=== PATIENT | male | born 1990 | race American Indian/Alaskan Native ===

== ENCOUNTER 2017-05-14 18:45 | Emergency (ER) | payer SELFPAY ==
[2017-05-14 18:52] VITALS: BP 120/77
[2017-05-14] MEDS ORDERED: BICILLIN L-A IM ONE (20:58)
[2017-05-14] MEDS ORDERED: TORADOL IM ONE (20:59)
--- NOTE | 2017-05-14 21:03 | Emergency Department Report ---
ED ENT HPI - General Chief complaint: Sore Throat Stated complaint: COLD Time Seen by Provider: 05/14/17 20:57 Source: patient Mode of arrival: Ambulatory Limitations: No Limitations - History of Present Illness Initial comments: 26 YO MALE DX WITH STREP THROAT LST WEEK AND TREATED BUT C/O COUGH FOR 2-3 WEEKS. HE FEELS THE STREP THROAT COMING ON AGAIN. PT HAS BEEN KISSING ON HIS GIRLFRIEND WHO WAS NOT TREATED MD complaint: sore throat -: week(s) (1) Location: throat Severity: moderate - Related Data Previous Rx's Medication Instructions Recorded Last Taken Type Diclofenac Dr [Voltaren Dr] 75 mg PO Q12H #30 tablet 03/02/14 Unknown Rx ALBUTEROL Inhaler [Proair] 2 puff IH QID PRN #1 inhalation 05/14/17 Unknown Rx Allergies Allergy/AdvReac Type Severity Reaction Status Date / Time shellfish derived Allergy Seizure Verified 05/14/17 18:53 ED Dental HPI - General Chief complaint: Sore Throat Stated complaint: COLD Time Seen by Provider: 05/14/17 20:57 Source: patient Mode of arrival: Ambulatory Limitations: No Limitations - Related Data Previous Rx's Medication Instructions Recorded Last Taken Type Diclofenac Dr [Voltaren Dr] 75 mg PO Q12H #30 tablet 03/02/14 Unknown Rx ALBUTEROL Inhaler [Proair] 2 puff IH QID PRN #1 inhalation 05/14/17 Unknown Rx Allergies Allergy/AdvReac Type Severity Reaction Status Date / Time shellfish derived Allergy Seizure Verified 05/14/17 18:53 ED Review of Systems ROS: Stated complaint: COLD Other details as noted in HPI Constitutional: denies: chills, fever Eyes: denies: eye pain, eye discharge, vision change ENT: throat pain. denies: ear pain Respiratory: cough (FOR 2-3 WEEKS). denies: shortness of breath, wheezing Cardiovascular: denies: chest pain, palpitations Endocrine: no symptoms reported Gastrointestinal: denies: abdominal pain, nausea, diarrhea Genitourinary: denies: urgency, dysuria Musculoskeletal: denies: back pain, joint swelling, arthralgia Skin: denies: rash, lesions Neurological: denies: headache, weakness, paresthesias Psychiatric: denies: anxiety, depression Hematological/Lymphatic: denies: easy bleeding, easy bruising ED Past Medical Hx - Past Medical History Previous Medical History?: No - Surgical History Past Surgical History?: No - Social History Smoking Status: Never Smoker Substance Use Type: Alcohol - Medications Home Medications: Home Medications Medication Instructions Recorded Confirmed Last Taken Type Diclofenac [Voltarekalani Vuong] 75 mg PO Q12H #30 tablet 03/02/14 Unknown Rx ALBUTEROL Inhaler [Proair] 2 puff IH QID PRN #1 inhalation 05/14/17 Unknown Rx ED Physical Exam - General Limitations: No Limitations General appearance: alert, in no apparent distress - Head Head exam: Present: atraumatic, normocephalic - Eye Eye exam: Present: normal appearance - ENT ENT exam: Present: mucous membranes moist, other (ERYTHEMA). Absent: normal orophraynx - Neck Neck exam: Present: normal inspection - Respiratory Respiratory exam: Present: normal lung sounds bilaterally. Absent: respiratory distress, wheezes - Cardiovascular Cardiovascular Exam: Present: regular rate, normal rhythm. Absent: systolic murmur, diastolic murmur, rubs, gallop - GI/Abdominal GI/Abdominal exam: Present: soft, normal bowel sounds - Rectal Rectal exam: Present: deferred - Extremities Exam Extremities exam: Present: normal inspection - Back Exam Back exam: Present: normal inspection - Neurological Exam Neurological exam: Present: alert, oriented X3 - Psychiatric Psychiatric exam: Present: normal affect, normal mood - Skin Skin exam: Present: warm, dry, intact, normal color. Absent: rash ED Course Vital Signs 05/14/17 18:49 Temperature 98.3 F Pulse Rate 67 Respiratory 18 Rate Blood Pressure 120/77 O2 Sat by Pulse 100 Oximetry Critical care attestation.: If time is entered above; I have spent that time in minutes in the direct care of this critically ill patient, excluding procedure time. ED Disposition Clinical Impression: Strep pharyngitis, Bronchitis Disposition: - TO HOME OR SELFCARE Is pt being admited?: No Does the pt Need Aspirin: No Condition: Stable Instructions: Acute Bronchitis (ED), Strep Throat (ED) Prescriptions: ALBUTEROL Inhaler [Proair] 2 puff IH QID PRN #1 inhalation PRN Reason: Shortness Of Breath Referrals: PRIMARY CARE, [Primary Care Provider] - 3-5 Days [facility] [Outside] - 3-5 Days Time of Disposition: 21:05
== END 2017-05-14 21:57 | disposition home or self-care (01) ==
LOC: ED 18:45
DX: J02.0 Streptococcal pharyngitis (principal); J40 Bronchitis, not specified as acute or chronic; F10.10 Alcohol abuse, uncomplicated; Z91.013 Allergy to seafood
CPT/HCPCS: 96372; 99282; J0561; J1885

== ENCOUNTER 2017-05-21 20:26 | Emergency (ER) | payer SELFPAY ==
[2017-05-21 20:32] VITALS: BP 128/76
--- NOTE | 2017-05-21 21:11 | Emergency Department Report ---
HPI - General Chief Complaint: Sore Throat Time Seen by Provider: 05/21/17 21:06 - HPI HPI: This is a 26 year-old male presents to the emergency department with complaint of a sore throat. He says that he was here last Monday, one week ago, and was diagnosed with strep pharyngitis. It also appears he was diagnosed with bronchitis at that time. He was given a shot of penicillin G, a shot of Toradol, and sent home with an inhaler. He says that the pain continues and that his girlfriend may also have strep throat but was never treated and is concerned that it "came back." He has some pain with swallowing but is able to do so. ED Past Medical Hx - Past Medical History Previous Medical History?: No - Surgical History Past Surgical History?: No - Social History Smoking Status: Never Smoker Substance Use Type: None - Medications Home Medications: Home Medications Medication Instructions Recorded Confirmed Last Taken Type Diclofenac Dr [Voltarekalani Vuong] 75 mg PO Q12H #30 tablet 03/02/14 Unknown Rx ALBUTEROL Inhaler [Proair] 2 puff IH QID PRN #1 inhalation 05/14/17 Unknown Rx Azithromycin [Zithromax Z-GREER] 250 mg PO DAILY #6 tab 05/21/17 Unknown Rx ED Review of Systems ROS: Stated complaint: COLD Other details as noted in HPI Comment: All other systems reviewed and negative Constitutional: denies: chills, fever Eyes: denies: eye pain, eye discharge, vision change ENT: throat pain. denies: ear pain Respiratory: denies: cough, shortness of breath, wheezing Cardiovascular: denies: chest pain, palpitations Gastrointestinal: denies: abdominal pain, nausea, diarrhea Genitourinary: denies: urgency, dysuria Musculoskeletal: denies: back pain, joint swelling, arthralgia Skin: denies: rash, lesions Neurological: denies: headache, weakness, paresthesias Physical Exam - Physical Exam Vital Signs: Vital Signs 05/21/17 05/21/17 20:29 20:38 Temperature 98.0 F 98 F Pulse Rate 68 75 Respiratory 18 18 Rate Blood Pressure 128/76 128/76 O2 Sat by Pulse 99 99 Oximetry Physical Exam: GENERAL: The patient is well-developed well-nourished. HENT: Normocephalic. Atraumatic. Patient has moist mucous membranes. No drooling or trismus. There is mild tonsillar hypertrophy and there is a left small tonsillar exudate. EYES: Extraocular motions are intact. Pupils equal reactive to light bilaterally. NECK: Supple. Trachea is midline. Bilateral tender but mobile small submandibular adenopathy. CHEST/LUNGS: Clear to auscultation. There is no respiratory distress noted. HEART: Normal heart sounds. No murmur. Normal rate. ABD: Abdomen is soft and nontender. Normal bowel sounds. SKIN: There is no rash. There is no edema. There is no diaphoresis. NEURO: The patient is awake, alert, and oriented. The patient is cooperative. The patient has no focal neurologic deficits. The patient has normal speech. MUSCULOSKELETAL: There is no tenderness or deformity. There is no evidence of acute injury. ED Course Vital Signs 05/21/17 05/21/17 20:29 20:38 Temperature 98.0 F 98 F Pulse Rate 68 75 Respiratory 18 18 Rate Blood Pressure 128/76 128/76 O2 Sat by Pulse 99 99 Oximetry ED Medical Decision Making - Medical Decision Making 26-year-old male presents with continued sore throat after being diagnosed with strep pharyngitis. He was treated with a one-time shot of penicillin G here. He still has a very mild amount of tonsillar hypertrophy and a left tonsillar exudate with some submandibular lymph nodes. I will treat him with azithromycin and give him referrals for primary care. He does not have any fever and the vital signs are stable throughout his ED course. He does not have any drooling or trismus, hot potato voice. Discharge instructions given while in the emergency department and all questions have been answered. - Differential Diagnosis viral pharyngitis, strep pharyngitis, mono Critical Care Time: No Critical care attestation.: If time is entered above; I have spent that time in minutes in the direct care of this critically ill patient, excluding procedure time. ED Disposition Clinical Impression: Pharyngitis Qualifiers: Pharyngitis/tonsillitis etiology: unspecified etiology Qualified Code(s): J02.9 - Acute pharyngitis, unspecified Disposition: DC-01 TO HOME OR SELFCARE Is pt being admited?: No Condition: Stable Instructions: Strep Throat (ED), Pharyngitis (ED) Additional Instructions: Please follow up with a primary care physician in the next few days. Return to the emergency Department with any worsening of her symptoms, change in your voice, intractable fever, inability to swallow or stay hydrated, or any acute distress. Prescriptions: Azithromycin [Zithromax Z-GREER] 250 mg PO DAILY #6 tab Referrals: JERRI SON MD [Staff Physician] - [facility] - [facility]5 Days Time of Disposition: 21:12
== END 2017-05-21 21:40 | disposition home or self-care (01) ==
LOC: ED 20:26
DX: J02.9 Acute pharyngitis, unspecified (principal)
CPT/HCPCS: 99282

== ENCOUNTER 2017-08-01 22:12 | Emergency (ER) | payer SELFPAY | END 2017-08-02 00:45 | disposition left against medical advice (07) | LOC: ED 22:12 | DX: T78.40XA Allergy, unspecified, initial encounter (principal); Z53.21 Procedure and treatment not carried out due to patient leaving prior to being seen by health care provider; X58.XXXA Exposure to other specified factors, initial encounter; Y93.89 Activity, other specified; Y99.8 Other external cause status; Y92.89 Other specified places as the place of occurrence of the external cause ==